=== PATIENT | male | born 2000 | race African-American/Black ===

== ENCOUNTER 2022-11-29 00:18 | Observation (INO) | payer OTHER ==
[2022-11-29] MEDS ORDERED: NALOXONE 2MG/2ML SYRINGE As Ordered ONE (00:39)
[2022-11-29] MEDS ORDERED: NALOXONE 2MG/2ML SYRINGE IV ONE (00:50)
[2022-11-29 01:04] LABS: ABG BASE EXCESS -4.5 (-2.0-2.0); ABG HCO3 22.4 MMOL/L (22.0-26.0); ABG O2 SATURATION 96.9 % (95.0-99.0); ABG PARTIAL PRESSURE CO2 48.1 mmHg (35.0-45.0); ABG PARTIAL PRESSURE O2 98.7 mmHg (75.0-100.0); ABG STANDARD HCO3 20.8 MMOL/L. (22.0-26.0); ABG TOTAL CO2 23.9 MMOL/L (22.0-29.0); ABG pH (ARTERIAL) 7.286 UNITS (7.350-7.450)
[2022-11-29 01:07] LABS: BASO % 0.3 % (0.0-1.0); EOS % 0.5 % (0.0-3.0); HEMATOCRIT 45.9 % (42.0-52.0); HEMOGLOBIN 14.8 g/dl (13.5-17.5); MEAN CORPUSCULAR HEMOGLOBIN 26.7 pg (27.0-33.0); MEAN CORPUSCULAR HGB CONC 32.2 g/dl (32.0-36.5); MEAN CORPUSCULAR VOLUME 82.9 fl (80.0-96.0); MONO # 0.4 10^3/uL (0.0-0.8); MONO % 5.4 % (2.0-8.0); NEUTROPHILS # 4.1 10^3/uL (1.5-8.5); NEUTROPHILS % 53.4 % (36.0-66.0); PLATELET COUNT, AUTOMATED 267 10^3/uL (150-450); RED BLOOD COUNT 5.54 10^6/uL (4.30-6.10); WHITE BLOOD COUNT 7.6 10^3/uL (4.0-10.0)
[2022-11-29] MEDS ORDERED: diphenhydrAMINE 50MG/ML VIAL IV STA (01:19)
[2022-11-29] MEDS ORDERED: HALOPERIDOL 5MG/ML 1ML VIAL IV STA (01:19)
[2022-11-29] MEDS ORDERED: LORazepam 2 MG/ML 1ML VIAL IV STA (01:19)
[2022-11-29] MEDS ORDERED: HALOPERIDOL 5MG/ML 1ML VIAL As Ordered ONE (01:22)
[2022-11-29] MEDS ORDERED: LORazepam 2 MG/ML 1ML VIAL As Ordered ONE (01:22)
[2022-11-29] MEDS ORDERED: diphenhydrAMINE 50MG/ML VIAL As Ordered ONE (01:22)
[2022-11-29 01:31] LABS: ACETAMINOPHEN LEVEL < 2.0 UG/ML (10.0-20.0); SALICYLATE LEVEL < 3.0 MG/DL (<30)
[2022-11-29 01:32] LABS: ALBUMIN 4.5 G/DL (3.2-5.2); ALKALINE PHOSPHATASE 66 U/L (46-116); ALT/SGPT 31 U/L (7.0-40); AST/SGOT 63 U/L (<34); BILIRUBIN,DIRECT 0.1 MG/DL (<0.4); BILIRUBIN,TOTAL 0.5 MG/DL (0.3-1.2); BLOOD UREA NITROGEN 14 MG/DL (9-23); CARBON DIOXIDE LEVEL 23 MMOL/L (20-31); CHLORIDE LEVEL 105 MMOL/L (98-107); CREATININE FOR GFR 0.79 MG/DL (0.70-1.30); GLOMERULAR FILTRATION RATE > 60.0 (>60); GLUCOSE, FASTING 113 MG/DL (60-100); POTASSIUM SERUM 3.4 MMOL/L (3.5-5.1); SODIUM LEVEL 142 MMOL/L (136-145)
[2022-11-29 01:34] LABS: CPK CREATINE PHOSPHOKINASE 750 U/L (46-171); THYROID STIMULATING HORMONE 0.529 uIU/ML (0.55-4.78)
[2022-11-29 02:13] VITALS: TEMP 94.3
[2022-11-29] MEDS ORDERED: NS 1,000 ML IV ONE ×2 (02:15→05:55)
[2022-11-29 02:40] LABS: AMPHETAMINES LEVEL URINE NEGATIVE (NEGATIVE); BARBITURATES URINE NEGATIVE (NEGATIVE); BENZODIAZEPINES URINE NEGATIVE (NEGATIVE); CANNABINOIDS URINE POSITIVE (NEGATIVE); COCAINE METABOLITE URINE NEGATIVE (NEGATIVE); METHADONE URINE NEGATIVE (NEGATIVE); OPIATES URINE NEGATIVE (NEGATIVE); PHENCYCLIDINE URINE NEGATIVE (NEGATIVE)
[2022-11-29 06:46] LABS: RSV AMPLIFICATION NEGATIVE (NEGATIVE)
[2022-11-29] MEDS ORDERED: MED REC IN PROGRESS XX SCH (07:10)
[2022-11-29] MEDS ORDERED: LORazepam 2 MG TAB PO PRN (07:35)
[2022-11-29] MEDS ORDERED: NS 1,000 ML IV SCH (07:35)
[2022-11-29] MEDS ORDERED: MULTIVITAMINS/MINERALS THERAP 1 TAB PO SCH (09:00)
[2022-11-29] MEDS ORDERED: FOLIC ACID 1MG TAB PO SCH (09:00)
[2022-11-29] MEDS ORDERED: THIAMINE 100 MG TAB PO SCH (09:00)
[2022-11-29] MEDS: KCL 10MEQ/100ML SWI (KRUN) 10 MEQ in IV 1 EA IV SCH ×4 (09:42→14:49)
[2022-11-29 10:04] LABS: ABG HCO3 22.5 MMOL/L (22.0-26.0); ABG O2 SATURATION 96.7 % (95.0-99.0); ABG PARTIAL PRESSURE CO2 41.9 mmHg (35.0-45.0); ABG PARTIAL PRESSURE O2 96.9 mmHg (75.0-100.0); ABG TOTAL CO2 23.8 MMOL/L (22.0-29.0); ABG pH (ARTERIAL) 7.348 UNITS (7.350-7.450)
[2022-11-29] MEDS ORDERED: MED REC CURRENTLY UNOBTAINABLE XX SCH (10:30)
[2022-11-29 16:03] VITALS: BP 128/59; O2SAT 98
== END 2022-11-29 16:29 | disposition home or self-care (01) ==
LOC: M ED 00:18 → EDBD 00:18 → M ED INP 07:44
PROVIDERS: ADMIT Internal Medicine; ATTEND Internal Medicine
DX: G92.9 Unspecified toxic encephalopathy (principal); T51.0X1A Toxic effect of ethanol, accidental (unintentional), initial encounter; R74.8 Abnormal levels of other serum enzymes; F10.920 Alcohol use, unspecified with intoxication, uncomplicated; F12.120 Cannabis abuse with intoxication, uncomplicated; M62.82 Rhabdomyolysis; T68.XXXA Hypothermia, initial encounter; X31.XXXA Exposure to excessive natural cold, initial encounter; E87.6 Hypokalemia; R94.31 Abnormal electrocardiogram [ECG] [EKG]; E87.20 Acidosis, unspecified; R94.6 Abnormal results of thyroid function studies; R45.5 Hostility
CPT/HCPCS: 36415; 36600; 70450; 71045; 72125; 80048; 80076; 80143; 80307; 81002; 82077; 82550; 82803; 83605; 84145; 84439; 84443; 85025; 87631; 93005; 93041; 94760; 96361; 96365; 96366; 96375; 99285; J1200; J1630; J2060; J2310